=== PATIENT | female | born 1975 | race Caucasian/White ===

== ENCOUNTER 2023-08-13 18:32 | Emergency (ER) | payer BC ==
[~2023-08-13] VITALS: Ht 162.6 cm; Wt 68.0 kg
[~2023-08-13 18:32] MED LIST: BUS5 PO; CIPR500T4 PO; FERR324T11 PO; IBUP-81 PO; LACT1.4C PO; LORA-476 PO
[2023-08-13 19:24] VITALS: BP 211/76; PULSE 80; RESP 16; TEMP 98.7; O2SAT 98
[2023-08-13 19:28] LABS: BASOPHILS # (AUTO) 0.1 K/uL (0.00-0.22); BASOPHILS % (AUTO) 0.7 % (0.0-2.0); EOSINOPHILS # (AUTO) 0.2 K/uL (0-0.4); EOSINOPHILS % (AUTO) 2.1 % (0.0-4.0); HEMATOCRIT 25.2 % (36-48); HEMOGLOBIN 7.6 g/dL (12.0-16.0); LYMPHOCYTES # (AUTO) 2.3 K/uL (2.5-16.5); LYMPHOCYTES % (AUTO) 22.3 % (20.5-51.1); MEAN CORPUSCULAR HEMOGLOBIN 20 pg (27-31); MEAN CORPUSCULAR HGB CONC 30 g/dL (33-37); MEAN CORPUSCULAR VOLUME 66.2 fL (80-94); MONOCYTES % (AUTO) 9.3 % (1.7-9.3); NEUTROPHILS # (AUTO) 6.9 K/uL (1.8-7.7); NEUTROPHILS % (AUTO) 65.6 % (42.2-75.2); PLATELET COUNT (AUTO) 592 K/uL (140-450); RED BLOOD CELL COUNT(AUTO) 3.81 MIL/uL (4.20-5.40); RED CELL DISTRIBUTION WIDTH 20.6 % (11.6-13.7); WHITE BLOOD COUNT (AUTO) 10.5 K/uL (4.8-10.8)
[2023-08-13 19:43] LABS: CALCIUM 8.4 mg/dL (8.5-10.1); CARBON DIOXIDE 27.4 mmol/L (21-32); CREATININE 0.6 mg/dL (0.6-1.3); POTASSIUM 3.4 mmol/L (3.5-5.1); TOTAL BILIRUBIN 0.1 mg/dL (0.0-1.0); TOTAL PROTEIN, SERUM 7.7 g/dL (6.4-8.2)
[2023-08-13 19:45] VITALS: BP 202/76; PULSE 75; RESP 11; O2SAT 99
[2023-08-13 19:50] LABS: INR 0.94 (0.8-1.2); PARTIAL THROMBOPLASTIN TIME 22.5 secs (22-35.6); PROTHROMBIN TIME 9.9 secs (10.8-13.4)
[2023-08-13] MEDS ORDERED: [UNRECOGNIZED DRUG - CODE] PO (20:06)
[2023-08-13] MEDS: POTASSIUM CHLORIDE 10 MEQ TABER PO ONE (20:28)
== END 2023-08-13 21:21 | disposition home or self-care (01) ==
LOC: MED 18:32
DX: D50.9 Iron deficiency anemia, unspecified (principal); E87.6 Hypokalemia; Z79.899 Other long term (current) drug therapy
CPT/HCPCS: 36415; 71045; 80053; 85025; 85610; 85730; 86886; 86900; 86901; 99284